=== PATIENT | female | born 1970 | race Caucasian/White ===

== ENCOUNTER 2023-10-05 08:42 | Emergency (ER) | payer MEDICARE, OTHER, SELFPAY ==
[2023-10-05 08:47] VITALS: BP 139/75
--- NOTE | 2023-10-05 09:08 | ED.GENMED ---
History of Present Illness
<CHIDI Love - Last Filed: 10/05/23 09:48>
General
Chief Complaint: Eye Problems
Source: patient
Exam Limitations: none
Time Seen by Provider: 10/05/23 08:48
Nursing documentation reviewed up to this point in time: agreed with
Travel History
Have you had any contact with someone who has COVID-19?: No
Do you have any symptoms of coronavirus? Fever > 100 degrees, chills, cough, shortness of breath, sore throat, loss of taste or smell, muscle aches, or headache?: No
History of Present Illness
History of Present Illness:
53-year-old female presents to the ER for evaluation. Patient notices swelling growth to the skin along her medial aspect of her right thigh for the past week. She reports she had a cold recently and this has increased. She denies any actual
decreased vision to her eye or eye complaints. She has been using warm compresses. She denies any fever or chills.
Past History
<CHIDI Love - Last Filed: 10/05/23 09:48>
Past History
ED Past Medical History: Other (Breast cancer, bowel obstruction)
ED Past Surgical History: Gynecological
Social History
Tobacco: Former smoker
Alcohol: None
Drug: None
Personal: Single
Living: with family
Employment: Employed
Review of Systems
<CHIDI Love - Last Filed: 10/05/23 09:48>
Review of Systems
Allergies reviewed?: Yes
All Other Systems: ROS reviewed and negative except as documented in HPI and ROS
Constitutional: Reports no symptoms; Denies fever, fatigue or chills
EENT: Reports other (growth to skin below right medial eye )
Respiratory: Reports no symptoms
Skin: Reports no symptoms
Endocrine: Reports no symptoms
Hematologic/Lymphatic: Reports no symptoms
Psychiatric: Reports no symptoms
Phy Exam
<CHIDI Love - Last Filed: 10/05/23 09:48>
General Physical Exam
General Presentation: no apparent distress
General age: appears stated age
General Skin: warm and dry
General Habitus: normal
General Mental: alert
General Hydration: appears well hydrated
Eye Exam
Eye Exam: PERRL, EOMI and other (right eye with no drainage no erythema + mild erythema and small raised mass to skin below medial aspect of eye )
Eye Exam General: PERRL: bilateral and EOM intact: bilateral
Pupil Exam: Bilateral: round and reactive
Neurological Exam
Neurological Exam: alert and oriented x3
Musculoskeletal Exam
Musculoskeletal Exam: full ROM
Skin Exam
Skin Exam: normal color and warm/dry
Course
<CHIDI Love - Last Filed: 10/05/23 09:48>
Orders/Labs/Results
Orders:
Orders
10/05/23 09:10
Clindamycin HCl [Cleocin] 300 mg PO NOW STA
Vital Signs
Initial and Last Documented VS:
Initial Vital Signs
Temp Pulse Resp Pulse Ox
99.5 F 108 16 98
10/05/23 08:44 10/05/23 08:44 10/05/23 08:44 10/05/23 08:44
Last Documented Vital Signs
Temp Pulse Resp BP Pulse Ox
99.5 F 108 16 139/75 98
10/05/23 08:44 10/05/23 08:44 10/05/23 08:44 10/05/23 08:47 10/05/23 08:44
Body Bumper consulted with Physician
Body Bumper consulted with physician?: Yes
Name of Physician Consulted: Dk
<Zaheer Root DO - Last Filed: 10/05/23 09:19>
Orders/Labs/Results
Orders:
Orders
10/05/23 09:10
Clindamycin HCl [Cleocin] 300 mg PO NOW STA
Vital Signs
Initial and Last Documented VS:
Initial Vital Signs
Temp Pulse Resp Pulse Ox
99.5 F 108 16 98
10/05/23 08:44 10/05/23 08:44 10/05/23 08:44 10/05/23 08:44
Last Documented Vital Signs
Temp Pulse Resp BP Pulse Ox
99.5 F 108 16 139/75 98
10/05/23 08:44 10/05/23 08:44 10/05/23 08:44 10/05/23 08:47 10/05/23 08:44
<CHIDI Love - Last Filed: 10/05/23 09:48>
MDM/Problems Addressed
Differential Diagnosis Includes:
not limited to: Stye, dacryocystitis
MDM/Problems Addressed:
Symptoms are consistent with dacryocystitis .patient seen by ED physician will DC with oral compresses clindamycin ophthalmology follow-up
<CHIDI Love - Last Filed: 10/05/23 09:48>
*Pulse Oximetry
Patient hypoxic: no
*Critical Care Note
Total Time (30-74mins, 75-104mins- exclusive of procedures): Not Applicable
ED Attending Note
<CHIDI Love - Last Filed: 10/05/23 09:48>
-
Portions of this chart may have been created with voice recognition software.� Occasional wrong word or��sound alike� substitutions may have occurred due to the inherent limitations of voice recognition software.
<Zaheer Root DO - Last Filed: 10/05/23 09:19>
ED Attending Note
Patient seen and examined by attending physician: Yes
I performed the substantive portion of visit, reviewed & personally made and approve the management plan that is documented in note by myself or ELIZABETH.: Yes
ED Attending Note:
I have seen and evaluated the patient with a [id number] encounter. I have spoken to the advance practicer provider and involved in the medical history, the physical exam, medical decision making.
Evaluation and management service: agree unless noted differently below.
Results interpretation: agree unless noted differently below.
Focused HPI: 53-year-old female presenting with swelling under her right eye. She initially thought it was a stye but symptoms are getting worse. She tried to pop it
Physical exam: Exam consistent with dacryocystitis.
Medical Decision Making: She is well-appearing nontoxic. Discussed clindamycin, warm compresses and ophthalmology follow-up
Discharge Plan
Departure
Patient Disposition: Home (Routine Discharge)
Date of Disposition: 10/05/23
Time of Disposition: 09:14
Patient with high blood pressure during this ER visit?: Yes
Covid-19: Not Applicable
Discharge Problem:
Dacrocystitis
Instructions: Tear Duct Infection (DC)
Prescriptions:
New
clindamycin HCl 300 mg capsule
300 mg PO Q6H Qty: 28 0RF
Referrals:
Wander Cisneros MD [Active] -
Activity Restrictions/Additional Instructions:
Warm compresses to affected area several times a day. Antibiotic as directed every 6 hours. This medication was sent to your pharmacy. It is importantly follow-up with ophthalmology. Please call today to make appt in the next several days
Return if any worsening of symptoms of increased pain swelling redness fever chills.
Interventions
Interventions:
*ED COVID-19 Vaccine History Last Done: 10/05/23 08:44
[2023-10-05] MEDS: CLEOCIN 300 MG PO (09:31)
[2023-10-05 09:55] VITALS: BP 135/76
== END 2023-10-05 09:58 | disposition home or self-care (01) ==
LOC: EMR 08:42
PROVIDERS: EMERGENCY PHYSICIAN Student in an Organized Health Care Education/Training Program; FAMILY PHYSICIAN Family Medicine
DX: H04.309 Unspecified dacryocystitis of unspecified lacrimal passage (principal); Z87.891 Personal history of nicotine dependence; R03.0 Elevated blood-pressure reading, without diagnosis of hypertension
CPT/HCPCS: 99283